=== PATIENT | female | born 1955 | race Caucasian/White ===

== ENCOUNTER → 2020-08-09 12:25 | Outpatient (BNVA) | payer MEDICAID, SELFPAY | PROVIDERS: PCP Internal Medicine; Referring Provider Internal Medicine; Visit Provider Orthopaedic Surgery | DX: M25.561 Pain in right knee (principal); I10 Essential (primary) hypertension; F17.200 Nicotine dependence, unspecified, uncomplicated | CPT/HCPCS: 99202 ==

== ENCOUNTER 2020-08-17 07:32 | Outpatient (REF) | payer MEDICAID, SELFPAY ==
--- NOTE | 2020-08-17 | MR_ITS ---
EXAMINATION: MR KNEE WITHOUT CONTRAST, RIGHT CLINICAL INFORMATION: Tear of medial meniscus, current, injury, right knee. Patient reports right knee gave out walking, posterior medial pain for one month, swelling, and no recent injury. COMPARISON: XR right knee 07/04/2020 TECHNIQUE: MRI of the knee without contrast was performed using routine sequences on a high-field scanner. FINDINGS: MENISCI: Medial Meniscus: There is a complete or near-complete avulsion of the posterior root of the medial meniscus. There is mild medial extrusion of the body. Lateral Meniscus: Intact LIGAMENTS: Cruciate: Intact Collateral: Intact EXTENSOR MECHANISM: The quadriceps and patellar tendons are intact. There is an enthesophyte at the quadriceps insertion site. ARTICULAR CARTILAGE/BONE: Patellofemoral Compartment: Normal Medial Compartment: There is patchy cartilage surface irregularity and pjuo-yh-uwsnffky thinning in the weight-bearing medial femoral condyle. This includes partial-thickness cartilage fissuring. There is mild cartilage thinning in the anterior and medial aspect of the medial tibial plateau. There are focal areas of mild subchondral bone marrow edema and minor cystic change. Lateral Compartment: Normal JOINT FLUID AND BURSAE: Small joint effusion and tiny Ferrera's cyst. MR/MR knee RT wo con IMPRESSION: 1. Complete or near-complete avulsion of the posterior root of the medial meniscus. Mild medial extrusion of the body. 2. Gykh-uw-timgiyzm arthrosis in the weight-bearing medial compartment, particularly involving the medial femoral condyle. 3. Small joint effusion and tiny Ferrera's cyst.
== END 2020-08-17 07:33 | disposition home or self-care (01) ==
LOC: HO.MRI 07:32
PROVIDERS: PCP Internal Medicine; Visit Provider Orthopaedic Surgery
DX: S83.241A Other tear of medial meniscus, current injury, right knee, initial encounter (principal)
CPT/HCPCS: 73721

== ENCOUNTER → 2020-09-14 12:38 | Outpatient (BNVA) | payer MEDICAID, SELFPAY | PROVIDERS: Visit Provider Orthopaedic Surgery | DX: S83.241D Other tear of medial meniscus, current injury, right knee, subsequent encounter (principal) | CPT/HCPCS: 99212 ==

== ENCOUNTER → 2020-10-18 11:38 | Outpatient (BNVA) | payer MEDICAID, SELFPAY | PROVIDERS: PCP Internal Medicine; Visit Provider Physician Assistant | DX: S83.241D Other tear of medial meniscus, current injury, right knee, subsequent encounter (principal) | CPT/HCPCS: 99212 ==

== ENCOUNTER 2020-10-27 07:00 | Day surgery (SDC) | payer MEDICAID, SELFPAY ==
[2020-10-21 10:10] VITALS: BMI 33.2
--- NOTE | 2020-10-26 13:43 | P.CONAN_ITS ---
Documented by User: Yennifer Fengney 10/26/20 13:44 HPI - Anesthesia Eval Consult details Narrative: 64yo F for right Knee Arthroscopy PMFSH Past Medical History Medical History Hypertension Smoker Family History Family History Father No problems noted. Mother No problems noted. Surgical History Surgical History Hx of colonoscopy Social History Social History Alcohol intake: never Smoking Status: Current every day smoker Packs Per Day: 0.5 Cigarettes Per Day: 10.0 Years Smoked: 12 Smoked in Last 30 Days: Yes Patient Interested in Nicotine Replacement: No Patient Given Instructions on How to Stop Smoking: Yes Date Education Initiated: 10/21/20 Use of substances other than those prescribed or required for medical reasons: No Advance Directives: No Advance Directives Information Provided: No Advance Directives on File: No Recently lost weight without trying: No Current occupational status: employed Current occupation: Right [employer]ed [employer] Allergies Allergy/AdvReac Type Severity Reaction Status Date / Time No Known Allergies Allergy Verified 10/21/20 10:03 [No Known Allergies*] Home Medications Medication Instructions Recorded Confirmed Type amlodipine 10 mg tablet 10 mg PO DAILY 08/08/20 10/21/20 History lisinopril 20 1 tab PO DAILY 08/08/20 10/21/20 History mg-hydrochlorothiazide 12.5 mg tablet Exam Exam Date and Time: October 26, 2020 1343 Height,Weight and Vital Signs: Height 5 ft Weight 77.111 kg Assessment and Plan Assessment Anesthesia Assessment: Chart Reviewed Documented by User: Stanislaw Salas MD 10/27/20 09:56 PMFSH Past Medical History Medical History Hypertension Smoker Family History Family History Father No problems noted. Mother No problems noted. Surgical History Surgical History Hx of colonoscopy Social History Social History Alcohol intake: never Smoking Status: Current every day smoker Packs Per Day: 0.5 Cigarettes Per Day: 10.0 Years Smoked: 12 Smoked in Last 30 Days: Yes Patient Interested in Nicotine Replacement: No Patient Given Instructions on How to Stop Smoking: Yes Date Education Initiated: 10/21/20 Use of substances other than those prescribed or required for medical reasons: No Advance Directives: No Advance Directives Information Provided: No Advance Directives on File: No Recently lost weight without trying: No Current occupational status: employed Current occupation: Right Handed Meds Allergies Allergy/AdvReac Type Severity Reaction Status Date / Time No Known Allergies Allergy Verified 10/21/20 10:03 [No Known Allergies*] Home Medications Medication Instructions Recorded Confirmed Type amlodipine 10 mg tablet 10 mg PO DAILY 08/08/20 10/21/20 History lisinopril 20 1 tab PO DAILY 08/08/20 10/21/20 History mg-hydrochlorothiazide 12.5 mg tablet Exam Airway Mallampati Class: II TM Dist: >3cm Neck ROM: Full Loose/Missing/Broken Teeth: No Heart: RRR Lungs: NL Other: AO Assessment and Plan Assessment Anesthesia Assessment: Anesthesia Plan Discussed and Chart Reviewed Final Anesthetic Review NPO: Yes ASA Class: III Final Preanesthetic Review: No Changes in Pt Med Stat, Meds/Allgs Chart Reviewed, Consent Obtained/Reviewed and Anes Risks/Benef Reviewed Patient Risk: Intermediate Procedure Risk: Low Anesthetic Plan Anesthetic Plan: GA Disposition: Standard PACU
[2020-10-27] VITALS (7 sets, daily range): BP systolic 118–146; BP diastolic 60–71; PULSE 53–78; RESP 16–18; TEMP 36.3–36.7; O2SAT 90–97
[2020-10-27] MEDS: Lactated Ringers 1,000 ML 100 ML IVCONT (07:25)
--- NOTE | 2020-10-27 07:28 | MHC.SHP ---
Pre-Procedural Eval Section A The patient is an INPATIENT: No Changes since office visit: No Cold of Flu in the past 2 weeks, No New Medical Problems, No Changes in Medication and No Patient answered all questions The History & Physical has been completed within 30 days and I have reviewed it.: Yes Section B Chief Complaint: tear of medial meniscus right knee Allergies: Allergies Allergy/AdvReac Type Severity Reaction Status Date / Time No Known Allergies Allergy Verified 10/21/20 10:03 [No Known Allergies*] Plan I have reviewed the history and physical and performed a pertinent physical examination on my patient. No changes have occurred unless specified.
--- NOTE | 2020-10-27 10:14 | PM.PRCOR ---
Brief Operative Note Date of procedure: 10/27/20 Pre-op diagnosis: Medial meniscal tear osteoarthritis right knee Post-op diagnosis: same Procedure: Arthroscopic surgery right knee Anesthesia: GETA Surgeon: Dread Wang Estimated blood loss (mL): 0 Condition: stable Disposition: PACU
[2020-10-27] MEDS: Acetaminophen 325 MG TABLET 650 MG PO (10:50)
[2020-10-27] MEDS: oxyCODONE HCl Immed Release 5 MG TABLET PO (10:51)
--- NOTE | 2020-10-27 10:59 | OP_ITS ---
SURGEON: Dread Wang MD PREOPERATIVE DIAGNOSIS: Osteoarthritis, medial meniscal tear, right knee. POSTOPERATIVE DIAGNOSIS: Osteoarthritis, medial meniscal tear, right knee. PROCEDURE PERFORMED: 1. Partial medial meniscectomy, right knee. 2. Debridement of medial femoral condyle, right knee. ESTIMATED BLOOD LOSS: COMPLICATIONS: ANESTHESIA: ASSISTANTS: SPECIMENS: CLINICAL NOTE: This lady has ongoing problem with pain and discomfort involving her knee. She has failed nonoperative management. Subsequent investigations demonstrated a tear at the root of the medial meniscus. Therefore, after explaining the risks, benefits, and alternatives and answering all the questions, it was mutually agreed upon to carry out the following procedure. MOTION: Full range of motion. STABILITY: Cruciate and collateral ligaments intact. DESCRIPTION OF PROCEDURE: PREPARATION: GA, standard technique, tourniquet to 300 mmHg for 12 minutes. SURGICAL TIME-OUT: The patient was identified, procedure confirmed, site confirmed. Medical analogy and history reviewed. Preoperative antibiotics given. Standard DVT prophylaxis in place. All other items were discussed and agreed upon. INCISION: Superolateral, inferolateral, inferomedial stab incisions. SYNOVIUM: Normal. SYNOVIAL FLUID: Clear. MEDIAL COMPARTMENT: There was a small displaced tear at the root of the medial meniscus. This was resected and contoured to stable meniscus. The remainder was intact. There was a large area of the weightbearing surface of grade 3 injury with loose articular cartilage, which was debrided and contoured. The tibial articular surface had grade 2 wear. INTERCONDYLAR NOTCH: ACL visualized, palpated intact. PCL palpated intact. LATERAL COMPARTMENT: Lateral meniscus, tibial and femoral articular surfaces, popliteus tendon all stable and intact. ANTERIOR COMPARTMENT: Medial and lateral gutters clear. Suprapatellar pouch clear. Patella and femoral sulcus, articular surfaces intact. CLOSURE: A 30 mL of half and half combination of 0.75% Marcaine with epinephrine and normal saline was injected into the knee. Steri-Strips and sterile dressing then applied. RECOMMENDATIONS: 1. Restore motion and strength. 2. Resume activity as tolerated. 3. Discharge today with prescription for Tylenol No.3, 20 tablets. 4. Follow up in the office in 10 days' time. Dread Wang MD KKI/MODL / [id number]
--- NOTE | 2020-10-27 11:55 | HO.POSTANES ---
Post Anesthesia Evaluation Post Anesthesia Evaluation Vital Signs: Vital Signs Temp Pulse Resp BP Pulse Ox 10/27/20 11:03 98.1 F 60 18 126/60 96 10/27/20 10:45 69 18 130/65 97 10/27/20 10:30 56 18 126/66 96 10/27/20 10:25 53 16 122/63 94 10/27/20 10:20 67 16 123/67 90 L 10/27/20 10:15 97.8 F 67 16 118/70 95 10/27/20 07:17 97.3 F 78 16 146/71 H 96 Anesthesia: General LMA Mental Status: Awake Pain Control: Satisfactory Nausea/Vomiting: None Hydration: Adequate Anesthesia-Related Issues: No Anes. Related Issues
== END 2020-10-27 12:00 | disposition home or self-care (01) ==
PROVIDERS: PCP Internal Medicine; Visit Provider Orthopaedic Surgery
PROC: (CPT 29870; principal; 2020-10-27 09:40)
DX: S83.241A Other tear of medial meniscus, current injury, right knee, initial encounter (principal); M17.11 Unilateral primary osteoarthritis, right knee; X58.XXXA Exposure to other specified factors, initial encounter; Y93.9 Activity, unspecified; Y92.9 Unspecified place or not applicable; Y99.8 Other external cause status; I10 Essential (primary) hypertension; Z79.899 Other long term (current) drug therapy; F17.210 Nicotine dependence, cigarettes, uncomplicated
CPT/HCPCS: 29881; J0171; J1100; J1170; J1885; J2250; J2405; J3010

== ENCOUNTER → 2020-11-28 08:58 | Outpatient (BNVA) | payer MEDICAID, SELFPAY | PROVIDERS: PCP Internal Medicine; Visit Provider Physician Assistant | DX: Z13.89 Encounter for screening for other disorder (principal) | CPT/HCPCS: 99212 ==

== ENCOUNTER 2020-12-27 09:00 | Outpatient (RCR) | payer MEDICAID, SELFPAY ==
--- NOTE | 2020-12-14 12:30 | MHC.PT.EP ---
[facility] [place] Office [place] Office [place] Office [address] Mirian Salazar [address] [facility] [phone] F: [phone] F: [phone] F: [phone] F: [phone] Physical Therapy Plan of Care Date of Evaluation: 12/14/20 Date of Surgery: 10/27/20 Diagnosis: Partial medial meniscectomy, right knee and debridement of medial femoral condyle, right knee 10/27/20 Assessment: The Pt is a 65 y/o female referred to skilled PT s/p arthroscopic surgery of the right knee on 10/27/[address] Wang. Pt specifically underwent a partial medial meniscectomy and debridement of medial femoral condyle. Assessment reveals pain at the right knee joint, patella hypomobility in all directions, decreased active and passive right knee range of motion, tenderness to palpation, impaired gastroc length, numbness reported @ the right anterior knee near the inferior patella pole, decreased knee strength, inflammation, impaired weight bearing, and impaired gait. 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 The Pt will require skilled PT services 2x/week for 6 weeks in order to reduce impairments and improve limitations. Frequency and Duration: The patient will be seen 2x/week for 6 weeks Short Term Goals: -In 2 weeks, Pt to demonstrate 0 degrees PROM into right knee extension and improve knee flexion PROM/AAROM by at least 10 degrees. -In 3 weeks, Pt to demonstrate the ability to ambulate w/ heel to toe gait pattern and adequate knee extension @ IC/less knee flexion throughout gait. Technical Training Instructor Goals: -In 5 weeks, Pt to consistently report less than 4/10 pain w/ standing, walking, and weight bearing through the RLE. -In 6 weeks, Pt to improve right quad and hamstring strength by at least 1 grade. -In 6 weeks, Pt to demonstrate I w/ HEP and improve LEFI score. Treatment Plan: Modalities to reduce pain, spasms and effusion. Manual therapy to restore motion and function. Therapeutic exercise to improve strength and flexibility. Neuromuscular re-education for posture and balance. Therapeutic activities to return to functional activities of daily living. Electronically signed by: Emi Kearney PT, DPT Please sign and return to therapist. Thank you for your referral.
--- NOTE | 2021-01-03 10:32 | MHC.PT.DC ---
[facility] [place] Office [place] Office [place] Office [address] Mirian Salazar [address] [phone] F: [phone] F: [phone] F: [phone] F: [phone] Physical Therapy Discharge Report Diagnosis: Partial medial meniscectomy, right knee and debridement of medial femoral condyle, right knee 10/27/20 Date of Surgery: 10/27/20 Date of Evaluation: 12/14/20 Date of Discharge: 01/03/21 Treatments to Date: 3 Cancellations to Date: 0 No Shows to Date: 0 Discharge Status: Patient Elected to Stop Discharge Summary: Pt lacking 7 degrees active knee extension ROM w/ quad set in supine. She is able to obtain 121 degrees knee flexion through heel slides w/ stretch strap. She requires initial extensive cueing for correct form and activation of targeted muscle groups w/ step ups/step downs. After verbal, tactile, and visual cues, movement patterns improve and Pt able to perform exercise correctly, although she is lacking eccentric quad control when descending steps. She has the extension ROM to perform a somewhat normal gait pattern. However, she demonstrates difficulty w/ motor sequencing and has increased knee flexion throughout her gait pattern. For this reason, she will highly benefit from initiation of TM walking NV beginning at a low comfortable walking speed. I would also like to add TKE w/ either TB or UM gigi system, continue step ups w/ 4 inch step, and initiate heel taps w/ 2 or 4 inch step. Pt is self discharging due to family issues. She does not disclose any more information at this time. She will require rehab in the future to address impairments and limitations. D/C per Pt @ this time. Electronically signed by: Emi Kearney PT, DPT Please sign and return to therapist. Thank you for your referral.
== END 2021-01-03 10:33 | disposition other institution (70) ==
LOC: HO.PT 09:00
PROVIDERS: PCP Internal Medicine; Visit Provider Physician Assistant
DX: Z98.890 Other specified postprocedural states (principal)
CPT/HCPCS: 97110; 97161

== ENCOUNTER 2021-08-11 09:44 | Outpatient (REF) | payer MEDICAID, SELFPAY ==
[2021-08-18 23:20] LABS: HPV 16 RNA NOT DETECTED (NOT DETECTED); HPV mRNA E6/E7 rflx Detected (Not Detected)
== END 2021-08-11 09:45 | disposition home or self-care (01) ==
LOC: HO.LAB 09:44
PROVIDERS: PCP Internal Medicine; Visit Provider Advanced Practice Midwife
DX: Z01.419 Encounter for gynecological examination (general) (routine) without abnormal findings (principal); Z11.51 Encounter for screening for human papillomavirus (HPV); Z72.0 Tobacco use
CPT/HCPCS: 87624; 87625; 88142

== ENCOUNTER 2022-06-21 11:13 | Outpatient (REF) | payer MEDICAID, SELFPAY ==
--- NOTE | ~2022-06-21 | XR_ITS ---
EXAMINATION: XR ANKLE, RIGHT CLINICAL INFORMATION: Pain COMPARISON: None TECHNIQUE: AP, lateral, and mortise views of the right ankle. FINDINGS: The ankle mortise and subtalar joints are normal. No visible acute fracture, dislocation or subluxation seen. A large calcaneal heel and retrocalcaneal enthesophytes. The soft tissues are normal. XR/XR ankle RT min 3V IMPRESSION: Large calcaneal heel and retrocalcaneal enthesophytes. No visible acute fracture, dislocation or subluxation seen.
== END 2022-06-21 11:14 | disposition home or self-care (01) ==
LOC: HO.XRAY 11:13
PROVIDERS: PCP Internal Medicine; Visit Provider Emergency Medicine
DX: M25.571 Pain in right ankle and joints of right foot (principal)
CPT/HCPCS: 73610

== ENCOUNTER 2024-10-15 08:48 | Outpatient (REF) | payer MEDICARE, MEDICAID, SELFPAY ==
[2024-10-15 11:26] LABS: MANUAL DIFF FLAG NO
[2024-10-15 11:40] LABS: Basophils Absolute Auto 0.1 X10*3/uL (0.0-0.2); Basophils Percent Auto 0.8 % (0-2); Eosinophils Absolute Auto 0.3 X10*3/uL (0.0-0.4); Hematocrit 44.7 % (37.0-47.0); Hemoglobin 14.8 g/dl (12.0-16.0); Imm Gran Abs Auto 0.02 X10*3/uL (0.00-0.03); Imm Gran Pct Auto 0.2 % (0.0-0.4); Lymphocytes Absolute Auto 3.1 X10*3/uL (1.2-4.9); Lymphocytes Percent Auto 37.2 % (20-40); Mean Corpuscular HGB Conc 33.1 g/dl (31.0-35.0); Mean Corpuscular Hemoglobin 30.5 pg (27.0-33.0); Mean Platelet Volume 10.5 fL (9.4-12.3); Monocytes Absolute Auto 0.6 X10*3/uL (0.1-1.2); Neutrophils Absolute Auto 4.3 x10*3/uL (2.0-8.3); Neutrophils Percent Auto 51.8 % (45-73); Platelet Count 368 X10*3/uL (160-400); Red Blood Count 4.86 X10*6/uL (4.20-5.50); Red Cell Distribution Width 13.2 % (11.0-16.0); White Blood Count 8.3 X10*3/uL (4.8-10.8)
[2024-10-15 13:01] LABS: Alanine Aminotransferase 42 U/L (0-31); Albumin Level 4.1 g/dL (3.5-5.0); Alkaline Phosphatase 121 U/L (39-117); Anion Gap 12 (12-20); Aspartate Amino Transferase 29 U/L (5-31); Bilirubin Total 0.4 mg/dL (0.0-1.0); Blood Urea Nitrogen 16 mg/dL (9-16); Calcium 9.5 mg/dL (8.4-10.2); Carbon Dioxide 25 mmol/L (22-29); Chloride 110 mmol/L (96-108); Cholesterol 219 mg/dL (<200); Estimated Glomerular Filt Rate > 60; Glucose Random 113 mg/dL (60-115); HDL Cholesterol 36 mg/dL (>40); LDL Cholesterol Calculated 152 mg/dL (<100); Potassium 3.5 mmol/L (3.3-5.1); Sodium 143 mmol/L (135-145); Total Protein 7.6 g/dL (6.5-8.0); Triglycerides 155 mg/dL (<150)
[2024-10-15 13:07] LABS: TSH reflex Free T4 1.23 uIU/mL (0.32-4.0)
== END 2024-10-15 08:49 | disposition home or self-care (01) ==
LOC: HO.HHCL 08:48
PROVIDERS: Visit Provider Internal Medicine
DX: I10 Essential (primary) hypertension (principal); E66.812 Obesity, class 2; E66.01 Morbid (severe) obesity due to excess calories; Z68.37 Body mass index [BMI] 37.0-37.9, adult
CPT/HCPCS: 36415; 80053; 80061; 84443; 85025

== ENCOUNTER 2024-11-06 07:35 | Outpatient (REF) | payer MEDICARE, MEDICAID, SELFPAY ==
--- NOTE | ~2024-11-06 | MM_ITS ---
EXAMINATION: DXA BONE DENSITY AXIAL HISTORY: Estrogen deficiency TECHNIQUE: Bandwidth Dual energy absorptiometry (DEXA) of the lumbar spine, total left hip, and femoral neck was performed. COMPARISON: There are no prior studies for comparison. FINDINGS: The bone mineral density of the lumbar spine is 1.059 with a T-score of -1.0, and a Z-score of -0.2. The bone mineral density of the left total hip is 0.883 with a T-score of -1.0, and a Z-score of -0.2. The bone mineral density of the left femoral neck is 0.868 with a T-score of -1.2, and a Z-score of -0.2. FRACTURE RISK: The FRAX index suggests a risk of major osteoporotic fracture of 4.6%, and of hip fracture 0.7%. MM/XR DEXA axial skeleton IMPRESSION: Based on bone mineral density, and according to World Health Organization (WHO) criteria, the diagnosis is consistent with osteopenia. All bone density values are in grams per centimeter squared (g/cm2). Statistically, 68% of repeat scans fall within 1 SD (+/- 0.010 g/cm2 for AP spine L1-L4) and 1 SD (+/- 0.012 g/cm2 for femur total) FRAX is a trademark of the [employer] [employer] [facility] [employer] [facility], a World Health Organization (WHO) Collaborating Center. Electronically signed by: Shaan Hardin MD 11/09/2024 12:42 PM [facility]
--- OUTSIDE RECORDS SUMMARY | 2024-11-06 07:37 | XMS_ITS | Encounter Summary ---
Author Organization [employer] Address [address] [place] [address] Care Team Providers Care Dismantler Name Role Phone Sahara Glover MD Primary Care Provide r Encounter Details Date Type Department Care Team ([facility] Contact Info) Description 11/05/2024 Telephone [facility] [address] [place], [place] [phone] Sahara Glover MD [address] [place], [place] [phone] Social History Tobacco Use Types Packs/Day Years Used Date Smoking Tobacco: Every Day Cigarettes Passive Smoke Exposure: Current Smokeless Tobacco: Never Alcohol Use Standard Drinks/Week Comments Never 0 (1 standard drink = 0.6 oz pur e alcohol) Depression Answer Date Recorded Patient Health Questionnaire-9 Score 0 09/29/2024 Patient Health Questionnaire-9 Score 0 09/29/2024 Last PHQ-9: Questionnaire Data Not on file 1 11/30/2023 Housing Stability Answer Date Recorded What is your housing situation today? I have andrea morales 09/29/[address] you li ve. Do you have problems with any of the following? None of the above 09/29/2024 Food Insecurity Answer Date Recorded Within the past 12 months, y ou worried that your food would run out before you got money to buy more: Never True 09/29/2024 Within the past 12 months,th e food you bought just didn't last and you didn't have enough money to get more: Never True Transportation Answer Date Recorded In the past 12 months, has l ack of transportation kept you from medical appts, meetings, work or from getting things needed for daily living? No 09/29/2024 Utilities Answer Date Recorded In the past 12 months, has t he electric, gas, oil or water company threatened to shut off services in your home? No 09/29/2024 Depression Answer Date Recorded Patient Health Questionnaire-2 Score 0 09/29/2024 Internet Access Answer Date Recorded Internet Access Q1 No 09/29/2024 Internet Access Q2 I do not want or need it 09/07 Comments Unknown Sex and Gender Information Value Date Recorded Sex Assigned at Female 08/06/2022 10:36 AM EDT Legal Sex Female 10:36 AM EDT Gender Identity Female 08/06/2022 10:36 AM EDT Sexual Orientation Don't know 08/06/2022 10 :36 AM EDT documented as of this encounter Plan of Treatment Not on file documented as of this encounter Visit Diagnoses Not on filedocumented in this encounter Additional Health Concerns Assessment Noted Time PHQ-9 Depression Total Score: 0 09/29/20 24 9:30 AM EST documented as of this encounter Care Teams Dismantler Relationship Specialty Start Date End Date Sahara Glover MD [address] [place] [address] PCP - General Family Medicine 10/27/19 documented as of this encounter
--- OUTSIDE RECORDS SUMMARY | 2024-11-06 07:37 | XMS_ITS | Encounter Summary ---
Author Organization [employer] Address [address] [place] [address] [address] [place] [address] Care Team Providers Care Casting Room Operator Name Role Phone Sahara Glover MD Primary Care Provide r Reason for Referral * Consultation (Routine) - Closed Specialty Diagnoses / Procedures Referred By Contac t Referred To Contact Nutrition Diagnoses Class 2 severe obesity with serious comorbidity and body mass index (BMI) of 37.0 to 37.9 in adult, unspecified obesity type (CMS/HCC) Essential hypertension Sahara Glover MD [address] [place] [id number] Phone: tel: fax: Referral ID Status Reason Start Date Expiration Date V isits Requested Visits Authorized [id number] Closed Specialty Services Required 10/14/2024 10/14/2025 1 1 Encounter Details Date Type Department Care Team (Late st Contact Info) Description 10/14/2024 Orders Only [facility] [address] [place] [address] [phone] Sahara Glover MD [address] [place], [place] [phone] Class 2 severe obesity with serious comorbidity and body mass index (BMI) of 37.0 to 37.9 in adult, unspecified obesity type (CMS/HCC) (Primary Dx); Essential hypertension Social History Tobacco Use Types Packs/Day Years [...] t he electric, gas, oil or water Bass Manager threatened to shut off services in your [...] as of this encounter Plan of Treatment Scheduled Referrals Name Type Priority Associated Diagnoses Orde r Schedule Referral to Nutrition Services, Internal Outpatient Referral Routine Class 2 severe obesity with serious comorbidity and body mass index (BMI) of 37.0 to 37.9 in adult, unspecified obesity type (CMS/HCC) Essential hypertension Expected: 10/14/2024 (Approximate), Expires: 10/14/2025 documented as of this encounter Visit Diagnoses Diagnosis Class 2 severe obesity with serious comorbidity and body mass index (BMI) of 37.0 to 37.9 in adult, unspecified obesity type (CMS/HCC)- Primary Essential hypertension Unspecified essential hypertension documented in this encounter Additional Health Concerns Assessment Noted Time PHQ-9 Depression Total Score: 0 09/29/20 24 9:30 AM EST documented as of this encounter Care Teams Casting Room Operator Relationship Specialty Start Date End Date Sahara Glover MD [address] [place] [address] PCP - General Family Medicine 10/27/19 documented as of this encounter
--- OUTSIDE RECORDS SUMMARY | 2024-11-06 07:37 | XMS_ITS | Encounter Summary ---
Author Organization [employer] Address [address] [place] [address] [address] [place] [address] Care Team Providers Care Shop Tech Name Role Phone Sahara Glover MD Primary Care Provide r Reason for Visit * Reason Comments Med Refill Encounter Details Date Type Department Care Team ([facility] st Contact Info) Description 05/16/2024 Refill [facility] [address] [place] [address] [phone] Sahara Glover MD [address] [place] [address] Social History Tobacco Use Types Packs/Day Years Used Date Smoking Tobacco: Every Day Cigarettes Smokeless Tobacco: Never Comments Unknown Sex and Gender Information Value Date Recorded Sex Assigned at Female 08/06/2022 10:36 AM EDT Legal Sex Female 10:36 AM EDT Gender Identity Female 08/06/2022 10:36 AM EDT Sexual Orientation Don't know 08/06/2022 10 :36 AM EDT documented as of this encounter Plan of Treatment Not on file documented as of this encounter Visit Diagnoses Not on filedocumented in this encounter Care Teams Shop Tech Relationship Specialty Start Date End Date Sahara Glover MD [address] [place], [place] [phone] PCP - General Family Medicine 10/27/19 documented as of this encounter
--- OUTSIDE RECORDS SUMMARY | 2024-11-06 07:37 | XMS_ITS | Encounter Summary ---
Author Organization [employer] Address [address] [place] [address] [address]t [place] [address] Care Team Providers Care Transcription Typist Name Role Phone Sahara Glover MD Primary Care Provide r Reason for Visit * Reason Onset Date Comments Med Refill 08/17/2024 Encounter Details Date Type Department Care Team ([facility] st Contact Info) Description 08/17/2024 Telephone [facility] [address] [place] [address] Sahara Glover MD [address] [place] [address] Med Refill Social History Tobacco Use Types Packs/Day Years Used Date Smoking Tobacco: Every Day Cigarettes Smokeless Tobacco: Never Comments Unknown Sex and Gender Information Value Date Recorded Sex Assigned at Female 08/06/2022 10:36 AM EDT Legal Sex Female 10:36 AM EDT Gender Identity Female 08/06/2022 10:36 AM EDT Sexual Orientation Don't know 08/06/2022 10 :36 AM EDT documented as of this encounter Miscellaneous Notes * Telephone Encounter - Deneen Kelley LPN - 08/17/2024 11:57 AM EST Medication sent to [facility] today. * Telephone Encounter - Viola Dallas - 08/17/2024 11:55 AM EST TC from pt requesting medication refill. Medications needing refill : lisinopril-hydroCHLOROthiazide 20-12.5 MG tablet To be sent to: [facility] documented in this encounter Plan of Treatment Not on file documented as of this encounter Visit Diagnoses Not on filedocumented in this encounter Care Teams Transcription Typist Relationship Specialty Start Date End Date Sahara Glover MD [address] [place] [phone] PCP - General Family Medicine 10/27/19 documented as of this encounter
--- OUTSIDE RECORDS SUMMARY | 2024-11-06 07:37 | XMS_ITS | Encounter Summary ---
Author Organization [employer] Address [address] [facility] [address] [place] [address] Care Team Providers Care Beader Tender Name Role Phone Sahara Glover MD Primary Care Provide r Reason for Visit * Reason Onset Date Comments Referral 10/14/2024 Encounter Details Date Type Department Care Team ([facility] st Contact Info) Description 10/14/2024 Telephone [facility]INE [address] [place], [place] [phone] Sahara Glover MD [address] [place] [address] Referral Social History Tobacco Use Types Packs/Day Years [...] encounter Miscellaneous Notes * Telephone Encounter - Emily Perez RN - 10/16/2024 3:36 PM EST Noted. Patient informed via [employer] message (patient has been communicating with RN thru [employer]). * Telephone Encounter - Louise Garza RN - 10/16/2024 2:30 PM EST Telephone call x1 to pt to advise of below results and new medication, no answer, left voicemail. Will task to call again. * Telephone Encounter - Louise Garza RN - 10/16/2024 1:57 PM EST ----- Message from Sahara Ibarra MD sent at 10/16/2024 1:20 PM EST ----- Please let patient know I reviewed her labs her TSH is normal but her cholesterol is high shehas a ASCVD score of 18.6% I had to put her on atorvastatin 40mg daily * Telephone Encounter - Juliana Diallo - 10/14/2024 4:15 PM EST Called PT to set up a nutrition appt. PT states she does not wan to see Lou since she has workedwith her before, she would like to be referred outside of [facility] for nutrition. documented in this encounter Plan of Treatment Not on file documented as of this encounter Visit Diagnoses Not on filedocumented in this encounter Additional Health Concerns Assessment Noted Time PHQ-9 Depression Total Score: 0 09/29/20 24 9:30 AM EST documented as of this encounter Care Teams Beader Tender Relationship Specialty Start Date End Date Sahara Glover MD [address] [place] [address] PCP - General Family Medicine 10/27/19 documented as of this encounter
--- OUTSIDE RECORDS SUMMARY | 2024-11-06 07:37 | XMS_ITS | Encounter Summary ---
Author Organization [employer] Address [address] [place] [address] [address] [place] [address] Care Team Providers Care Personnel Manager Name Role Phone Sahara Glover MD Primary Care Provide r Encounter Details Date Type Department Care Team (Latest Contact Info) Description 09/21/2019 Abstract [facility] CON[facility] Dental, Provider, DDS Social History Tobacco Use Types Packs/Day Years Used Date Smoking Tobacco: Never Assessed Comments Unknown Sex and Gender Information Value [...] on filedocumented in this encounter Care Teams Personnel Manager Relationship Specialty Start Date End Date Sahara Glover MD [address] [place] [id number] PCP - General Family Medicine 10/27/19 documented as of this encounter
--- OUTSIDE RECORDS SUMMARY | 2024-11-06 07:37 | XMS_ITS | Encounter Summary ---
Author Organization [email or web address] Address [address] [place] [address] [address] [place] [address] Care Team Providers Care Building Pressure Washer Name Role Phone Sahara Glover MD Primary Care Provide r Reason for Referral * Consultation (Routine) - Closed Specialty Diagnoses / Procedures Referred By Contac t Referred To Contact Nutrition Diagnoses Class 2 severe obesity with serious comorbidity and body mass index (BMI) of 37.0 to 37.9 in adult, unspecified obesity type (CMS/HCC) Primary hypertension Sahara Glover MD [address] [place] [id number] Phone: tel: fax: Referral ID Status Reason Start Date Expiration Date V isits Requested Visits Authorized [id number] Closed Specialty Services Required 10/15/2024 10/15/2025 1 1 Encounter Details Date Type Department Care Team (Late st Contact Info) Description 10/15/2024 Orders Only [facility] [address] [place] [address] [phone] Sahara Glover MD [address] [place] [address] Class 2 severe obesity with serious comorbidity and body mass index (BMI) of 37.0 to 37.9 in adult, unspecified obesity type (CMS/HCC) (Primary Dx); Primary hypertension Social History Tobacco Use Types Packs/Day [...] t he electric, gas, oil or [employer] threatened to shut off services in your [...] Diagnoses Orde r Schedule Referral to Nutrition Therapy Outpatient Referral Routine Class 2 severe obesity with serious comorbidity and body mass index (BMI) of 37.0 to 37.9 in adult, unspecified obesity type (CMS/HCC) Primary hypertension Expected: 10/15/2024 (Approximate), Expires: 10/15/2025 documented as of this encounter Visit Diagnoses Diagnosis Class 2 severe obesity with serious comorbidity and body mass index (BMI) of 37.0 to 37.9 in adult, unspecified obesity type (CMS/HCC)- Primary Primary hypertension Unspecified essential hypertension documented in this encounter Additional Health Concerns Assessment Noted Time PHQ-9 Depression Total Score: 0 09/29/20 24 9:30 AM EST documented as of this encounter Care Teams Building Pressure Washer Relationship Specialty Start Date End Date Sahara Glover MD [address] [place] [address] PCP - General Family Medicine 10/27/19 documented as of this encounter
--- OUTSIDE RECORDS SUMMARY | 2024-11-06 07:37 | XMS_ITS | Encounter Summary ---
Author Organization [employer] Address [address] [place] [address] [address] [place] [address] Care Team Providers Care Industrial Recruiter Name Role Phone Sahara Glover MD Primary Care Provide r Reason for Referral * Consultation (Routine) - Authorized Specialty Diagnoses / Procedures Referred By Contac t Referred To Contact Obstetrics and Gynecology Diagnoses Pap smear, as part of routine gynecological examination Sahara Glover MD [address] [place] [phone] Phone: tel: fax: [facility] [address] ([address] Hospital Entrance) [place], [place] Phone: tel: fax: Referral ID Status Reason Start Date Expiration Date Visits Requested Visits Authorized [id number] Authorized Specialty Services Required 10/09/2024 10/09/2025 1 1 Encounter Details Date Type Department Care Team (Late st Contact Info) Description 10/09/2024 Orders Only [facility] [address] [place] [address] [phone] Sahara Glover MD [address] [place] [address] [phone] Pap smear, as part of routine gynecological examination (Primary Dx) Social History Tobacco Use Types Packs/Day Years [...] Associated Diagnoses Orde r Schedule Referral to Obstetrics / Gynecology Outpatient Referral Routine Pap smear, as part of routine gynecological examination Expected: 10/09/2024 (Approximate), Expires: 10/09/2025 documented as of this encounter Visit Diagnoses Diagnosis Pap smear, as part of routine gynecological examination- Primary Screening for malignant neoplasm of the cervix documented in this encounter Additional Health Concerns Assessment Noted Time PHQ-9 Depression Total Score: 0 12/24/20 24 9:30 AM EST documented as of this encounter Care Teams Industrial Recruiter Relationship Specialty Start Date End Date Sahara Glover MD [address] [place] [address] PCP - General Family Medicine 10/27/19 documented as of this encounter
--- OUTSIDE RECORDS SUMMARY | 2024-11-06 07:37 | XMS_ITS | Clinical Summary ---
Author Organization [employer] Address [address] [place] [address] 7[address] [place] [address] Care Team Providers Care Railroad Mechanic Name Role Phone Sahara Glover MD Primary Care Provide r Allergies No known active allergies Medications varenicline (Chantix Continuing Month ) 1 MG tablet Take 1 tablet by mouth every 12 (twelve) hours. 0 Active ondansetron (Zofran) 4 MG tablet take 1 tablet by oral route every 6-8 hours as needed. for nausea 0 Active nicotine (Nicoderm, Step 3) 7 MG/24HR patch apply 1 patch by transdermal route every day and remove at bedtime for two weeks, after completing 14mg/24hr dosing 1 Active nicotine (Nicoderm, Step 1) 21 MG/24HR patch apply 1 patch by transdermal route every day and remove at bedtime for four weeks 1 Active nicotine (Nicoderm, Step 2) 14 MG/24HR patch apply 1 patch by transdermal route every day and remove at bedtime for two weeks, after completing 21mg/24hr dosing 1 Active methylPREDNISolo ne (MEDROL, MELISSA,) 4 MG tablets Take by mouth. 0 Active meclizine (Antivert) 12.5 MG tablet take 1-2 tablet by oral route 3 times every day as needed 0 Active lidocaine (Lidoderm) 5 % patch Place 1 patch on the skin in the morning. 2 Active diclofenac (Voltaren) 75 MG EC tablet Take 1 tablet by mouth in the morning and 1 tablet in the evening. 0 Active Diclofenac Sodium 1 % gel Apply 2 g topically in the morning and 2 g at noon and 2 g in the evening. 2 Active baclofen (Lioresal) 10 MG tablet Take 1 tablet by mouth in the morning and 1 tablet in the evening. 0 Active atorvastatin (Lipitor) 40 MG tablet Take 1 tablet by mouth at bed time. 1 Active aspirin-acetamin ophen-caffeine (Excedrin Migraine) 250-250-65 MG tablet take as needed every 8 hours 2 Active amLODIPine (Norvasc) 10 MG tabletIndication s:Essential hypertension Take 1 tablet (10 mg) by mouth Once per day. 90 tablet 1 4 Active lisinopril-hydro CHLOROthiazide 20-12.5 MG tabletIndication s:Primary hypertension TAKE TWO TABLETS BY MOUTH EVERY DAY 180 tablet 4 Active Multiple Vitamin (multivitamin) tabletIndication s:Essential hypertension Take 1 tablet by mouth Once per day. 30 tablet 2 5 Active atorvastatin (Lipitor) 40 MG tabletIndication s:Essential hypertension,Dys lipidemia (high LDL; low HDL) Take 1 tablet (40 mg) by mouth Once per day. 30 tablet 11 5 10/16/19 26 Active Active Problems Problem Noted Date Diagnosed Date Asymptomatic menopausal state 09/29/2024 Encounter for screening mamm ogram for malignant neoplasm of breast 09/29/2024 Abnormal Papanicolaou smear of cervix 09/29/2024 Benign paroxysmal positional vertigo 05/08/2024 Dizziness 05/08/2024 Hypokalemia 05/08/2024 Essential hypertension 05/08/2024 Assessment & Plan (09/29/2024 11:51 AM EST): Maintenance: BMP: ordered Lipid Panel: ordered ASCVD Risk: Calculate pending updated labs - Aerobic exercise to reduce BP. Initial goal of 30 min walk 3-5x/week. Increase as tolerated. - low-sodium diet (goal: <2g/day) and heart healthy diet such as DASH to reduce BP and prevent ASCVD. - Home BP monitoring 1-2 x day with goal of <140/90. - Seek immediate medical attention for chest pain, palpitations, SOB, syncope, or sudden changes in mental status. - Do not change or discontinue current prescriptions without first consulting health care provider Nausea and vomiting 05/08/2024 Encounters Date Type Department Care Team Description 11/05/2024 Telephone [facility] [address] [place] [address] Sahara Glover MD 10/16/2024 Orders Only [facility] [address] [place] [phone] Sahara Glover MD Essential hypertension (Primary Dx); Dyslipidemia (high LDL; low HDL) 10/15/2024 Orders Only [facility] [address] [place] [address] Sahara Glover MD Class 2 severe obesity with serious comorbidity and body mass index (BMI) of 37.0 to 37.9 in adult, unspecified obesity type (CMS/HCC) (Primary Dx); Primary hypertension 10/14/2024 Telephone [facility] [address] [place] [phone] Sahara Glover MD Referral 10/14/2024 Orders Only [facility] [address] [place] [address], [place] [phone] Sahara Glover MD Class 2 severe obesity with serious comorbidity and body mass index (BMI) of 37.0 to 37.9 in adult, unspecified obesity type (CMS/HCC) (Primary Dx); Essential hypertension 10/09/2024 Orders Only [facility] [address] [place] [address] [phone] Sahara Glover MD Pap smear, as part of routine gynecological examination (Primary Dx) 09/29/2024 9:30 AM EST Office Visit [address] [phone] Sahara Glover MD Essential hypertension (Primary Dx); Primary hypertension; Screening for colon cancer; Asymptomatic menopausal state; Encounter for screening mammogram for malignant neoplasm of breast; Abnormal cervical Papanicolaou smear, unspecified abnormal pap finding; Dietary counseling; Exercise counseling; Class 2 severe obesity with serious comorbidity and body mass index (BMI) of 37.0 to 37.9 in adult, unspecified obesity type (CMS/HCC) 09/29/2024 Travel 09/18/2024 Patient Outreach [facility] [address] [place] [address] Sahara Glover MD Pre-visit Planning ((Unable to reach for PVP screening, LVM)) 09/17/2024 Refill [facility] [address] [place], [place] [phone] Yessy Piper MD 08/17/2024 Telephone [facility] [address] [place], [place] [phone] Sahara Glover MD Med Refill 08/15/2024 Refill [facility] [address] [place], [place] [phone] Sahara Glover MD Primary hypertension from Last 3 Months Immunizations Name Administration Dates Next Due Hep B, adult 12/17/2018,08/06/2018 INFLUENZA INJECTABLE QUADRIV ALANT CCIIV4 MDCK Multi-dose vial 06/13/2019 Influenza Injectable Quadriv alant Preservative Free IIV4 MDCK 06/15/2020 Influenza injectable quadriv alent preservative free 07/07/2021,06/07/2019,07/03/2018 Tdap 03/02/2016 Varicella 11/17/2018,10/20/2018 Social History Tobacco Use Types Packs/Day Years Used Date Smoking Tobacco: Every Day Cigarettes Passive Smoke Exposure: Current Smokeless Tobacco: Never Tobacco Cessation:Ready to Q uit: Not Asked; Counseling Given: Not Answered Alcohol Use Standard Drinks/Week Comments Never 0 [...] Don't know 08/06/2022 10 :36 AM EDT Last Filed Vital Signs Vital Sign Reading Time Taken Comments Blood Pressure 132/69 09/29/2024 9:29 AM EST Pulse 97 09/29/2024 9:29 AM EST Temperature 35.6 ??C (96.1 ??F) 09/29/2024 9:29 AM ES T Respiratory Rate 16 09/29/2024 9:29 AM EST Oxygen Saturation - - Inhaled Oxygen Concentration - - Weight 88.1 kg (194 lb 3.2 oz) 09/29/2024 9:29 A M EST Height 152.4 cm (5') 09/29/2024 9:29 AM EST Body Mass Index 37.93 09/29/2024 9:29 AM EST Plan of Treatment Health Maintenance Due Date Last Done Comments CT Colonography 1957 Colonoscopy 1957 FIT 1957 FOBT 1957 Sigmoidoscopy 1957 Hepatitis C Screening 1975 Pneumococcal Vaccine: 50+ Years (1 of 2 - PCV) 1976 Mammogram 1997 Zoster Vaccines (1 of 2) 01/12/2019 Hepatitis B Vaccines (3 of 3 - 19+ 3-dose series) 02/11/2019 12/17/2018, 08/06/2018 HPV/Cotest 08/11/2022 08/11/2021, 08/11/2021 Pap Smear 08/11/2022 08/11/2021 Dental Oral Exam 08/18/2023 02/14/2023 Dental Prophylaxis 08/29/2023 02/25/2023 Dental X-Ray: Bitewings 02/16/2024 02/14/2023 COVID-19 Vaccine ( season) 2024 12/28/2021, 07/07/2021, 02/09/2021 Influenza Vaccine (#1) 2024 , 06/15/2020, 06/13/2019, Additional history exists Alcohol/Substance Use Screening 09/29/2025 09/29/2024 Depression Screening 09/29/2025 09/29/2024, 09/29/20 SDOH Screening 09/29/2025 09/29/2024 Tobacco Screening 09/29/2025 09/29/2024 Dental X-Ray: Full Mouth 02/15/2026 02/14/2023 DTaP/Tdap/Td Vaccines (2 - Td or Tdap) 03/02/2026 03/02/2016 Colorectal Cancer Screening 10/08/2027 FIT DNA/Cologuard 10/08/2027 10/08/2024 Lipid Panel 10/15/2029 10/15/2024, 07/07, 05/27/2020 RSV Patients and Patients Aged 60 years or older (1 - 1-dose 75+ series) 2032 HIB Vaccines Aged Out No longer eligi ble based on patient's age to complete this topic HPV Vaccines Aged Out No longer eligi ble based on patient's age to complete this topic Hepatitis A Vaccines Aged Out No long er eligible based on patient's age to complete this topic IPV Vaccines Aged Out No longer eligi ble based on patient's age to complete this topic Meningococcal Vaccine Aged Out No shan tash eligible based on patient's age to complete this topic RSV under 20 months Aged Out No longe r eligible based on patient's age to complete this topic Rotavirus Vaccines Aged Out No longer eligible based on patient's age to complete this topic Procedures Procedure Name Priority Date/Time Associated Diagnosis Comments TSH W/REFLEX TO FT4 Routine 10/15/2024 8 :50 AM EST Essential hypertension Class 2 severe obesity with serious comorbidity and body mass index (BMI) of 37.0 to 37.9 in adult, unspecified obesity type (CMS/HCC) LIPID PANEL, STANDARD Routine 10/15/2024 8:50 AM EST Essential hypertension COMPREHENSIVE METABOLIC PANEL Routine 10/15/2024 8:50 AM EST Essential hypertension Class 2 severe obesity with serious comorbidity and body mass index (BMI) of 37.0 to 37.9 in adult, unspecified obesity type (CMS/HCC) CBC WITH AUTO DIFFERENTIAL Routine 10/15/2024 8:50 AM EST Essential hypertension Class 2 severe obesity with serious comorbidity and body mass index (BMI) of 37.0 to 37.9 in adult, unspecified obesity type (CMS/HCC) LAB COLOGUARD?? COLON CANCER SCREEN Routine 10/08/2024 9:54 AM EST Screening for colon cancer PROPHYLAXIS - ADULT Routine 02/25/2023 8 :00 AM EDT Dental calculus DIAGNOSTIC - DIAGNOSTIC IMAGING - INTRAORAL - COMPREHENSIVE SERIES OF RADIOGRAPHIC IMAGES Routine 02/14/2023 11:00 AM EDT Dental caries Encounter for dental examination Dental bridge present PERIODIC ORAL EVALUATION - ESTABLISHED PATIENT Routine 02/14/2023 11:00 AM EDT Dental caries Encounter for dental examination Dental bridge present ZZZ HISTORICAL HPV E6/E7 RFLX NIGEL 16 18/45 Routine 08/11/2021 10:35 AM EDT HM PAP/HPV Routine 08/11/2021 from Last 3 Months or Most Recently Relevant to Health Maintenance Results * TSH with Reflex to Free T4 (10/15/2024 8:50 AM EST) TSH reflex Free T4 1.23 0.32 - 4.0 uIU/mL [facility] Blood Venous blood specimen / Unknown 10/15/2024 8:50 AM EST 10/15/2024 11:23 AM EST Sahara Ibarra MD LAB BLOOD ORDERABLES Final Result [facility] [address] [place] [address] [phone] * CBC auto differential (10/15/2024 8:50 AM EST) White Blood Count 8.3 4.8 - 10.8 X10*3/uL [facility] Red Blood Count 4.86 4.20 - 5.50 X10*6/uL [facility] Hemoglobin 14.8 12.0 - 16.0 g/dl [facility] Hematocrit 44.7 37.0 - 47.0 % [facility] Mean Corpuscular Volume 92.0 80.0 - 98.0 fL [facility] Mean Corpuscular Hemoglobin 30.5 27.0 - 33.0 pg [facility] Mean Corpuscular HGB Conc 33.1 31.0 - 35.0 g/dl [facility] Red Cell Distribution Width 13.2 11.0 - 16.0 % [facility] Platelet Count 368 160 - 400 X10*3/uL [facility] Mean Platelet Volume 10.5 9.4 - 12.3 fL [facility] Neutrophils Percent Auto 51.8 45 - 73 % [facility] Imm Gran Pct Auto 0.2 0.0 - 0.4 % [facility] Lymphocytes Percent Auto 37.2 20 - 40 % [facility] Monocytes Percent Auto 7.0 2 - 11 % [facility] Eosinophils Percent Auto 3.0 0 - 4 % [facility] Basophils Percent Auto 0.8 0 - 2 % [facility] NRBC Pct Auto 0.0 0.0 - 0.2 /100WBC [facility] Neutrophils Absolute Auto 4.3 2.0 - 8.3 x10*3/uL [facility] Imm Gran Abs Auto 0.02 0.00 - 0.03 X10*3/uL [facility] Lymphocytes Absolute Auto 3.1 1.2 - 4.9 X10*3/uL [facility] Monocytes Absolute Auto 0.6 0.1 - 1.2 X10*3/uL [facility] Eosinophils Absolute Auto 0.3 0.0 - 0.4 X10*3/uL [facility] Basophils Absolute Auto 0.1 0.0 - 0.2 X10*3/uL [facility] NRBC Abs Auto 0.000 0.0 - 0.012 X10*3/uL [facility] Blood Venous blood specimen / Unknown 10/15/2024 8:50 AM EST 10/15/2024 11:23 AM EST us Sahara Ibarra MD LAB BLOOD ORDERABLES Final Result [facility] [address] [place] [address] [phone] * (ABNORMAL) Lipid Panel, Standard (10/15/2024 8:50 AM EST) Triglycerides 155(H) <150 mg/dL [facility] Comment:Desirable Triglyceri de: less than 150 mg/dLBorderline High Triglyceride 150-199 mg/dLHigh Triglyceride: 200-499 mg/dLVery High Triglyceride: greater than or equal to 5OO mg/dL Cholesterol 219(H) <200 mg/dL [facility] Comment:Desirable Cholestero l: less than 200 mg/dLBorderline High Cholesterol: 200-239 mg/dLHigh Cholesterol: greater than 239 mg/dL LDL Cholesterol Calculated 152(H) <100 mg/dL [facility] Comment:Desirable LDL: less than 100 mg/dLNear Optimal/Above Optimal LDL: 110- 129 mg/dLBorderline High LDL: 130-159 mg/dLHigh LDL: 160-189 mg/dLVery High LDL: greater than or equal to 190 mg/dL HDL Cholesterol 36(L) >40 mg/dL [facility] Comment:Desirable HDL: great er than 40 mg/dL Note: This HDL assay may give artificially low results in patients with liver disease. Blood Venous blood specimen / Unknown 10/15/2024 8:50 AM EST 10/15/2024 11:23 AM EST us Sahara Ibarra MD LAB BLOOD ORDERABLES Final Result [facility] [address] [place] [address] [phone] * (ABNORMAL) Comprehensive Metabolic Panel (10/15/2024 8:50 AM EST) Sodium 143 135 - 145 mmol/L [facility] Potassium 3.5 3.3 - 5.1 mmol/L [facility] Chloride 110(H) 96 - 108 mmol/L [facility] Carbon Dioxide 25 22 - 29 mmol/L [facility] Anion Gap 12 12 - 20 [facility] Urea Nitrogen (BUN) 16 9 - 16 mg/dL [facility] Creatinine, Serum 0.75 0.5 - 1.4 mg/dL [facility] Estimated Glomerular Filt Rate >60 [facility] Comment:Chronic Kidney Disea se: Estimated GFR < 60 mL/min/1.98v2Jbjsvr Kidney Disease: Estimated GFR < 15 mL/min/1.73m2 Glucose 113 60 - 115 mg/dL [facility] Calcium 9.5 8.4 - 10.2 mg/dL [facility] Bilirubin, Total 0.4 0.0 - 1.0 mg/dL [facility] Aspartate Amino Transferase 29 5 - 31 U/L [facility] Alanine Aminotransferase 42(H) 0 - 31 U/L [facility] Total Protein 7.6 6.5 - 8.0 g/dL [facility] Albumin Level 4.1 3.5 - 5.0 g/dL [facility] Alkaline Phosphatase 121(H) 39 - 117 U/L [facility] Blood Venous blood specimen / Unknown 10/15/2024 8:50 AM EST 10/15/2024 11:23 AM EST us Sahara Ibarra MD LAB BLOOD ORDERABLES Final Result [facility] [address] [place] [address] [phone] * Cologuard?? colon cancer screening (10/08/2024 9:54 AM EST) Cologuard Result Negative Negative 10/13/19 2:07 PM EST [facility] (CLIA #:[id number]) Comment: NEGATIVE TEST RESULT. A negative Cologuard result indicates a low likelihood that a colorectal cancer (CRC) or advanced adenoma (adenomatous polyps with more advanced pre-malignant features) ??is present. The chance that a person with a negative Cologuard test has a colorectal cancer is less than 1 in 1500 (negative predictive value >99.9%) or has an ??advanced adenoma is less than ??5.3% (negative predictive value 94.7%). These data are based on a prospective cross-sectional study of 10,000 individuals at average risk for colorectal cancer who were screened with both Cologuard and colonoscopy. (Joaquín Fontaine et al, N Engl J Med 2014;370(14):1286- 1297) The normal value (reference range) for this assay is negative. COLOGUARD RE-SCREENING RECOMMENDATION: Periodic colorectal cancer screening is an important part of preventive healthcare for asymptomatic individuals at average risk for colorectal cancer. ??Following a negative Cologuard result, the [place] [employer] Society and U.S. Multi-Society Task Force screening guidelines recommend a Cologuard re-screening interval of 3 years. References: [place] [employer] Guideline for Colorectal Cancer Screening: https://www.cancer.org/cancer/vwdqw-xlwmvh-noioql/pxopqveql-bvigzswjw-zdimtzn/ac s-rec ommendations.html.; Michael AQUINO, Leilani AHN, Nick PINZON, Colorectal Cancer Screening: Recommendations for Physicians and Patients from the U.S. Multi-Society Task Force on Colorectal Cancer Screening , Am J Gastroenterology 2017; 112:7822-8424. TEST DESCRIPTION: Composite algorithmic analysis of stool DNA-biomarkers with hemoglobin immunoassay. ?? Quantitative values of individual biomarkers are not reportable and are not associated with individual biomarker result reference ranges. Cologuard is intended for colorectal cancer screening of adults of either sex, 45 years or older, who are at average-risk for colorectal cancer (CRC). Cologuard has been approved for use by the U.S. FDA. The performance of Cologuard was established in a cross sectional study of average-risk adults aged 50-84. Cologuard performance in patients ages 45 to 49 years was estimated by sub-group analysis of near-age groups. Colonoscopies performed for a positive result may find as the most clinically significant lesion: colorectal cancer [4.0%], advanced adenoma (including sessile serrated polyps greater than or equal to 1cm diameter) [20%] or non- advanced adenoma [31%]; or no colorectal neoplasia [45%]. These estimates are derived from a prospective cross-sectional screening study of 10,000 individuals at average risk for colorectal cancer who were screened with both Cologuard and colonoscopy. (Joaquín Lugo al, N Engl J Med 2014;370(14):4478-7530.) Cologuard may produce a false negative or false positive result (no colorectal cancer or precancerous polyp present at colonoscopy follow up). A negative Cologuard test result does not guarantee the absence of CRC or advanced adenoma (pre-cancer). The current Cologuard screening interval is every 3 years. ([place] [employer] and U.S. Multi-Society Task Force). Cologuard performance data in a 10,000 patient pivotal study using colonoscopy as the reference method can be accessed at the following location: www.[employer].mPort/results. Additional description of the Cologuard test process, warnings and precautions can be found at www.[employer].com. Stool specimen (specimen) 10/08/2024 9:54 AM EST 10/10/2024 7:23 AM EST Sahara Ibarra MD LAB MOLECULAR DIAGNOS TICS ORDERABLES Final Result [facility] (CLIA #:[id number]) [address] [place] [address], * (ABNORMAL) HPV E6/E7 RFLX NIGEL 16 18/45 (08/11/2021 10:35 AM EDT) HPV 16 RNA NOT DETECTED NOT DETECTED [facility] HPV 18/45 RNA NOT DETECTED NOT DETECTED [facility] Comment: Methodology: Leather Sorter Mediated Amplification The analytical performance characteristics of this assay have been determined by [employer]. The modifications have not been cleared or approved by the FDA. This assay has been validated pursuant to the CLIA regulations and is used for clinical purposes. THIS TEST WAS PERFORMED AT: [facility] [employer] [employer] [address] [place] [address],[place], [place] ??[phone] ANDREAS VILLAGRAN MD HPV mRNA E6/E7 rflx Detected(A) Not Detected [facility] Comment: Methodology: Leather Sorter-Mediated Amplification This assay detects E6/E7 viral messenger RNA (mRNA) from 14 high-risk HPV types (16,18,31,33,35,39,45,51,52,56,58,59,66,68). The analytical performance characteristics of this assay have been determined by [employer]. The modifications have not been cleared or approved by the FDA. This assay has been validated pursuant to the CLIA regulations and is used for clinical purposes. For additional information, please refer to http://education.fitogram/faq/UBF399p2 (This link if provided for information/ educational purposes only.) THIS TEST WAS PERFORMED AT: [facility] [address],[facility] [place], [place] ??[phone] ANDREAS VILLAGRAN MD 08/11/2021 10:3 5 AM EDT us Leana Joyner HISTORICAL/NON ORDERABLE LABS Fi nal Result [facility] [address] * Hm Pap Smear (08/11/2021) Historical Provider HEALTH MAINTENANCE Final Result from Last 3 Months or Most Recently Relevant to Health Maintenance Insurance [facility] STANDARD MEDIC[place] [phone] DENTAL-[facility] MEDICAID STAND ADULT Care Teams Railroad Mechanic Relationship Specialty Start Date End Date Sahara Glover MD [address] [place] [phone] PCP - General Family Medicine 10/27/19
--- OUTSIDE RECORDS SUMMARY | 2024-11-06 07:37 | XMS_ITS | Encounter Summary ---
Author Organization [employer] Address [address] [place] [address] Care Team Providers Care Medical Accounting Clerk Name Role Phone Sahara Glover MD Primary Care Provide r Encounter Details Date Type Department Care Team ([facility] st Contact Info) Description 10/16/2024 Orders Only [facility] [address] [place], [place] [phone] Sahara Glover MD [address] [place], [place] [phone] Essential hypertension (Primary Dx); Dyslipidemia (high LDL; low HDL) Social History Tobacco Use Types Packs/Day Years [...] as of this encounter Visit Diagnoses Diagnosis Essential hypertension- Primary Unspecified essential hypertension Dyslipidemia (high LDL; low HDL) Other and unspecified hyperlipidemia documented in this encounter Additional Health Concerns Assessment Noted Time PHQ-9 Depression Total Score: 0 09/29/20 24 9:30 AM EST documented as of this encounter Care Teams Medical Accounting Clerk Relationship Specialty Start Date End Date Sahara Glover MD [address] [place] [address] PCP - General Family Medicine 10/27/19 documented as of this encounter
--- OUTSIDE RECORDS SUMMARY | 2024-11-06 07:37 | XMS_ITS | Encounter Summary ---
Author Organization [employer] Address [address] [place] [address] [address] [place] [address] Care Team Providers Care Zipper Measurer Name Role Phone Sahara Glover MD Primary Care Provide r Encounter Details Date Type Department Care Team ([facility] st Contact Info) Description 06/28/2023 Orders Only [facility] [address] [place], [place] [phone] Provider, [place], Social History Tobacco Use Types Packs/Day Years [...] on file documented as of this encounter Procedures Procedure Name Priority Date/Time Associated Diagnosis Comments HM PAP/HPV Routine 08/11/2021 documented in this encounter Results * Hm Pap Smear (08/11/2021) Historical Provider HEALTH MAINTENANCE Final Result documented in this encounter Visit Diagnoses Not on filedocumented in this encounter Care Teams Zipper Measurer Relationship Specialty Start Date End Date Sahara Glover MD [address] [place], [place] [phone] PCP - General Family Medicine 10/27/19 documented as of this encounter
== END 2024-11-06 07:36 | disposition home or self-care (01) ==
LOC: HO.MAMMO 07:35
PROVIDERS: PCP Internal Medicine; Visit Provider Internal Medicine
DX: Z12.31 Encounter for screening mammogram for malignant neoplasm of breast (principal); Z13.820 Encounter for screening for osteoporosis; Z78.0 Asymptomatic menopausal state
CPT/HCPCS: 77063; 77067; 77080

== ENCOUNTER → 2024-11-06 08:45 | Outpatient (BNV) | payer MEDICARE, MEDICAID, SELFPAY | PROVIDERS: PCP Internal Medicine; Visit Provider Radiology Diagnostic Radiology | DX: Z12.31 Encounter for screening mammogram for malignant neoplasm of breast (principal) | CPT/HCPCS: 77063; 77067 ==